=== PATIENT | male | born 1935 | race Caucasian/White ===

== ENCOUNTER 2018-04-04 08:13 | Emergency (ER) | payer OTHER ==
[~2018-04-04] VITALS: Ht 170.2 cm; Wt 79.4 kg
[2018-04-04 08:15] VITALS: BP 147/64
--- NOTE | 2018-04-04 08:30 | NUR ---
82 YO MALE BIBA [facility] FROM [facility] FOR APPROX 1 INCH HEAD LACERATION TO OCCIPITAL REGION FROM [employer]RATION [employer] [place]. BLEEDING CONTROLLED. PT ARRIVED WITH MODIFIED C-COLLAR. PT IS AWAKE AND ALERT ON ARRIVAL. GCS=14, HX OF DEMENTIA. PER [facility] REPORT, PT IS AT NEURO BASELINE. PERRLA TO BL EYES. NO FACIAL OR SMILE ASYMMETRY. EQUAL GEOGRAPHIC INFORMATION SYSTEM ANALYST TO BL ARMS AND EQUAL PUSH AND PULL TO BL LEGS. PRODUCTIVE COUGH NOTED. RR ARE EVEN AND UNLABORED. ABD SOFT AND NON TENDER. NAD. ER MD HAMM AWARE OF PT STATUS. WILL CONTINUE TO MONITOR.
[2018-04-04] MEDS ORDERED: MULT1SGL58 PO (08:34)
[2018-04-04] MEDS ORDERED: IBUP-2213 PO (08:34)
[2018-04-04] MEDS ORDERED: ASPI-1718 PO (08:34)
[2018-04-04] MEDS ORDERED: ATOR10TA PO (08:34)
[2018-04-04] MEDS ORDERED: QUET200T PO (08:34)
[2018-04-04] MEDS ORDERED: DIVA250E1 PO (08:34)
[2018-04-04] MEDS ORDERED: QUET100T PO (08:34)
[2018-04-04] MEDS ORDERED: DIPH50CA69 PO (08:34)
[2018-04-04] MEDS ORDERED: ONDA-24 PO (08:34)
[2018-04-04] MEDS ORDERED: VITB6I PO (08:34)
--- NOTE | 2018-04-04 08:37 | NUR ---
er md hilliard by bedside examining pt
--- NOTE | 2018-04-04 08:40 | NUR ---
Juanita recinos in ED - 04/04/18 at 0972 by BERNA when ana hilliard was examing pt, patient removed modified c-collar spine precaution and threw it on the floor.
--- NOTE | 2018-04-04 08:40 | NUR ---
when er md hilliard was examing pt, patient removed modified c-collar spine precaution and threw it on the floor.
[2018-04-04] MEDS ORDERED: LORazepam 2 MG/ML VIAL IM ONE (08:45)
--- NOTE | 2018-04-04 09:03 | NUR ---
patient to ct via [facility] bottle house quality control technician
--- NOTE | 2018-04-04 09:15 | NUR ---
patient returned from ct via black accompanied by radiology and elton garrido. patient returned to rm 9 without incident.
--- NOTE | 2018-04-04 09:31 | NUR ---
daughter by bedside
[2018-04-04] MEDS ORDERED: BACITRACIN OINT 500 UNITS/GM PKT TP ONE ×2 (09:40→09:51)
[2018-04-04 10:22] VITALS: BP 150/70
--- NOTE | 2018-04-04 10:22 | NUR ---
Patient discharged with v/s stable. Written and verbal after care instructions given and explained. Patient verbalized understanding. Wheel Chair Assisted with to car with daughter Laura. All questions addressed prior to discharge. Advised to follow up with PMD.
== END 2018-04-04 10:22 | disposition home or self-care (01) ==
LOC: MED 08:13
DX: S01.01XA Laceration without foreign body of scalp, initial encounter (principal); G20 Parkinson's disease; F03.90 Unspecified dementia, unspecified severity, without behavioral disturbance, psychotic disturbance, mood disturbance, and anxiety; Z85.46 Personal history of malignant neoplasm of prostate; Z88.1 Allergy status to other antibiotic agents; Z88.8 Allergy status to other drugs, medicaments and biological substances; Z79.82 Long term (current) use of aspirin; Z79.1 Long term (current) use of non-steroidal anti-inflammatories (NSAID); Z79.899 Other long term (current) drug therapy; W18.39XA Other fall on same level, initial encounter; Y93.89 Activity, other specified; Y92.89 Other specified places as the place of occurrence of the external cause; Y99.8 Other external cause status
CPT/HCPCS: 12002; 70450; 72125; 90471; 90715; 96372; 99284; J2060

== ENCOUNTER 2018-04-06 07:36 | Emergency (ER) | payer OTHER ==
[~2018-04-06] VITALS: Ht 167.6 cm; Wt 81.6 kg
[~2018-04-06 07:36] MED LIST: ASPI-1718 PO; ATOR10TA PO; DIPH50CA69 PO; DIVA250E1 PO; IBUP-2213 PO; MULT1SGL58 PO; ONDA-24 PO; QUET100T PO; QUET200T PO; VITB6I PO
[2018-04-06 07:38] VITALS: BP 167/53
--- NOTE | 2018-04-06 07:38 | NUR ---
PT BIBA BLS TO BED 7
--- NOTE | 2018-04-06 07:54 | NUR ---
82/M SARMAD FROM [facility] FOR FALL IN THE DINING ROOM THIS MORNING. DENIES N/V OR LOC. PT FELL BACK ONTO HIS BUTTOCK. HX: DEMENTIA. SEEN HERE 04/04/18 S/P FALL. PT ACTING NEUROLOGICALLY AT BASE LINE. DIRK LEGS PITTING EDEMA +3. PATIENT STATES PAIN OF 0/10 AT THIS TIME. PATIENT POSITIONED FOR COMFORT; HOB ELEVATED; BEDRAILS UP X2; BED DOWN. ER MADE AWARE OF PT STATUS. Addendum: 04/06/18 at 0805 by [email or web address] Amendment undone in EDM - 04/06/18 at 0844 by [email or web address] SMALL ABRASION TO DIRK LOTT. Addendum: 04/06/18 at 0845 by [email or web address] ADDIE 4 STITCHES AT BACK OF SCALP, ABRASION TO LEFT ARM & DIRK LOTT. SMALL BRUISE TO RIGHT ARM.
--- NOTE | 2018-04-06 08:09 | NUR ---
Patient being evaluated by DR AGUERO at bedside. Addendum: 04/06/18 at 0853 by [facility] DAUGHTER AT BEDSIDE.
[2018-04-06] MEDS ORDERED: NACL 0.9% 1,000 ML IV ONE (08:20)
--- NOTE | 2018-04-06 08:23 | NUR ---
EKG AT BEDSIDE.
--- NOTE | 2018-04-06 08:45 | NUR ---
LAB AT BEDSIDE.
--- NOTE | 2018-04-06 08:53 | NUR ---
PT TAKEN TO CT VIA [facility], [employer] BY [employer].
[2018-04-06 08:56] LABS: BASOPHILS % (AUTO) 0.6 % (0.0-2.0); EOSINOPHILS # (AUTO) 0.1 K/uL (0-0.4); EOSINOPHILS % (AUTO) 1.4 % (0.0-4.0); HEMATOCRIT 36.1 % (36-52); HEMOGLOBIN 11.3 g/dL (12.0-18.0); LYMPHOCYTES # (AUTO) 1.9 K/uL (2.0-11.5); LYMPHOCYTES % (AUTO) 23.7 % (20.5-51.1); MEAN CORPUSCULAR HEMOGLOBIN 27 pg (27-31); MEAN CORPUSCULAR HGB CONC 31 g/dL (33-37); MEAN CORPUSCULAR VOLUME 84.6 fL (80-94); MONOCYTES # (AUTO) 0.5 K/uL (0.8-1.0); MONOCYTES % (AUTO) 6.2 % (1.7-9.3); NEUTROPHILS # (AUTO) 5.5 K/uL (1.8-7.7); NEUTROPHILS % (AUTO) 68.1 % (42.2-75.2); PLATELET COUNT (AUTO) 245 K/uL (140-450); RED BLOOD CELL COUNT(AUTO) 4.27 MIL/uL (4.20-6.10); RED CELL DISTRIBUTION WIDTH 13.5 % (11.6-13.7); WHITE BLOOD COUNT (AUTO) 8.1 K/uL (4.8-10.8)
--- NOTE | 2018-04-06 09:08 | NUR ---
PT RETURNED FROM CT.
[2018-04-06 09:15] LABS: ALBUMIN 3.2 g/dL (3.4-5.0); ANION GAP 11.3 (8-16); ASPARTATE AMINOTRANSFERASE 31 U/L (15-37); CARBON DIOXIDE 29.8 mmol/L (21-32); CHLORIDE 104 mmol/L (98-107); CREATININE 0.9 mg/dL (0.7-1.3); GLUCOSE 103 mg/dL (74-106); POTASSIUM 4.1 mmol/L (3.5-5.1); SODIUM SERUM 141 mmol/L (136-145); TOTAL BILIRUBIN 0.4 mg/dL (0.0-1.0); UREA NITROGEN, BLOOD 23 mg/dL (7-18)
[2018-04-06 09:33] LABS: PROTHROMBIN TIME 9.3 secs (10.8-13.4)
--- NOTE | 2018-04-06 10:01 | NUR ---
PT CAN'T PROVIDE URINE AT THIS TIME.
[2018-04-06 10:59] VITALS: BP 127/65
--- NOTE | 2018-04-06 10:59 | NUR ---
Patient discharged with v/s stable. Written and verbal after care instructions given and explained. Patient verbalized understanding. Wheel Chair Assisted with to car. All questions addressed prior to discharge. Advised to follow up with PMD.
== END 2018-04-06 10:59 | disposition home or self-care (01) ==
LOC: MED 07:36
DX: S09.90XA Unspecified injury of head, initial encounter (principal); N39.0 Urinary tract infection, site not specified; E11.9 Type 2 diabetes mellitus without complications; I10 Essential (primary) hypertension; G10 Huntington's disease; F02.80 Dementia in other diseases classified elsewhere, unspecified severity, without behavioral disturbance, psychotic disturbance, mood disturbance, and anxiety; Z88.1 Allergy status to other antibiotic agents; Z88.8 Allergy status to other drugs, medicaments and biological substances; Z79.82 Long term (current) use of aspirin; Z79.1 Long term (current) use of non-steroidal anti-inflammatories (NSAID); Z79.899 Other long term (current) drug therapy; Z79.84 Long term (current) use of oral hypoglycemic drugs; W19.XXXA Unspecified fall, initial encounter; Y93.89 Activity, other specified; Y92.89 Other specified places as the place of occurrence of the external cause; Y99.8 Other external cause status
CPT/HCPCS: 36415; 70450; 71045; 80053; 82948; 83605; 84484; 85025; 85610; 85730; 87040; 93005; 99284; J7030; Q0092

== ENCOUNTER 2018-04-19 09:22 | Emergency (ER) | payer OTHER ==
[~2018-04-19] VITALS: Ht 175.3 cm; Wt 81.6 kg
--- NOTE | 2018-04-19 09:54 | NUR ---
PT AMBULATES WITH WALKER ASSSITANCE TO BED 7
[2018-04-19 10:03] VITALS: BP 124/49
--- NOTE | 2018-04-19 10:10 | NUR ---
pt had claude placed to posterior of head, 5 claude, 15 days ago. claude look clean, no erythema, no drainage noted. pt denies pain; VSS; PATIENT POSITIONED FOR COMFORT; HOB ELEVATED; BEDRAILS UP X1; BED DOWN. ER MD MADE AWARE OF PT STATUS.
[2018-04-19 10:26] VITALS: BP 124/49
--- NOTE | 2018-04-19 10:26 | NUR ---
Patient discharged with v/s stable. Written and verbal after care instructions given and explained. Patient verbalized understanding. Ambulatory with steady gait. All questions addressed prior to discharge. Advised to follow up with PMD.
== END 2018-04-19 10:26 | disposition home or self-care (01) ==
LOC: MED 09:22
DX: S01.01XD Laceration without foreign body of scalp, subsequent encounter (principal); E11.9 Type 2 diabetes mellitus without complications; I10 Essential (primary) hypertension; Z79.82 Long term (current) use of aspirin; Z79.899 Other long term (current) drug therapy; Z88.1 Allergy status to other antibiotic agents; Z88.8 Allergy status to other drugs, medicaments and biological substances; Z79.84 Long term (current) use of oral hypoglycemic drugs; Z79.1 Long term (current) use of non-steroidal anti-inflammatories (NSAID); W19.XXXD Unspecified fall, subsequent encounter
CPT/HCPCS: 99281